=== PATIENT | female | born 1935 | race Asian ===

== ENCOUNTER 2018-04-21 08:23 | Day surgery (SDC) | payer OTHER ==
[~2018-04-21] VITALS: Ht 162.6 cm; Wt 51.3 kg
[~2018-04-21 08:23] MED LIST: CEFAZOLIN SOD 1 GM/ ISO 50 ML PREMIX IV ONE
[2018-04-21] MEDS ORDERED: ROCURONIUM BROMIDE 10 MG/ML (ZEMURON) IV ONE (12:05)
[2018-04-21] MEDS ORDERED: PROPOFOL 200MG/ 20ML VIAL (DIPRIVAN) IV ONE (12:05)
[2018-04-21] MEDS ORDERED: ONDANSETRON HCL 4 MG/2 ML VIAL IVP ONE (12:05)
[2018-04-21] MEDS ORDERED: ISOSULFAN BLUE 5 ML VIAL (LYMPHAZURIN) INJ ONE (12:05)
[2018-04-21] MEDS ORDERED: KETOROLAC TROMETHAMINE 15 MG VIAL IVP ONE (12:05)
[2018-04-21] MEDS ORDERED: fentaNYL CITRATE 250 MCG/5 ML AMP IV ONE (12:05)
[2018-04-21] MEDS ORDERED: SEVOFLURANE 15 MIN GAS INH ONE (12:05)
[2018-04-21] MEDS ORDERED: ATROPINE SULFATE 0.4 MG/ML VIAL IVP ONE (12:05)
[2018-04-21] MEDS ORDERED: DEXAMETHASONE SOD PHOSPHATE 4 MG/ML VIAL IVP ONE (12:05)
[2018-04-21] MEDS ORDERED: LR 1,000 ML IV.SOLN IV ONE (12:05)
[2018-04-21] MEDS ORDERED: NS IRRIG SOLN 1000 ML IR ONE (12:05)
[2018-04-21] MEDS ORDERED: BUPIVACAINE /PF 0.25% 30 ML VIAL INJ ONE (12:05)
[2018-04-21] MEDS ORDERED: MIDAZOLAM HCL 5 MG/5 ML VIAL IVP ONE (12:05)
[2018-04-21] MEDS ORDERED: LR 1,000 ML IV SCH (13:07)
[2018-04-21] MEDS ORDERED: MEPERIDINE HCL/PF 25 MG/ML DISP.SYRIN IVP PRN (13:15)
[2018-04-21] MEDS ORDERED: HYDROmorphone 1 MG INJ. 1 MG/ML AMPUL IVP PRN ×3 (13:15→15:00)
[2018-04-21] MEDS ORDERED: HYDROmorphone 2 MG/ML VIAL IVP PRN ×2 (13:15)
[2018-04-21] MEDS ORDERED: D5/0.45 NS 1,000 ML IV SCH ×2 (13:54→14:54)
[2018-04-21] MEDS ORDERED: HYDROcodone/ACETAMIN 5-325 MG TAB (NORCO/ VICODIN) PO PRN ×4 (14:00→15:00)
[2018-04-21] MEDS ORDERED: HYDROcodone/ACETAMIN 5-325 MG TAB (NORCO/ VICODIN) ONE (15:12)
[2018-04-21 15:23] VITALS: BP_SYST 116
== END 2018-04-21 17:50 | disposition home or self-care (01) ==
LOC: SDS 08:23 → SMU 08:27 → SDS 17:50
PROVIDERS: ATTEND Colon & Rectal Surgery
DX: C50.912 Malignant neoplasm of unspecified site of left female breast (principal); I10 Essential (primary) hypertension; M81.0 Age-related osteoporosis without current pathological fracture; N28.9 Disorder of kidney and ureter, unspecified; I87.2 Venous insufficiency (chronic) (peripheral); Z98.51 Tubal ligation status; Z79.899 Other long term (current) drug therapy; Z98.890 Other specified postprocedural states
CPT/HCPCS: 19081; 19301; 38525; 78195; 88305; 88307; 88329; 88342; A9541; J0461; J0690; J1100; J1885; J2250; J2405; J2704; J3010; J3490; J7120; Q9968; 76098-TC